=== PATIENT | male | born 1975 | race Caucasian/White ===

== ENCOUNTER 2019-06-16 14:48 | Emergency (ER) | payer MEDICAID, SELFPAY | END 2019-06-16 17:51 | disposition home or self-care (01) | PROVIDERS: Emergency Provider Family Medicine; Family Provider Internal Medicine; Visit Provider Family Medicine | DX: K80.50 Calculus of bile duct without cholangitis or cholecystitis without obstruction (principal); I10 Essential (primary) hypertension; M06.9 Rheumatoid arthritis, unspecified; M81.0 Age-related osteoporosis without current pathological fracture | CPT/HCPCS: 71045; 74177; 76705; 80053; 81003; 83690; 85025; 96374; 99284; J2270; Q9967 ==

== ENCOUNTER → 2019-06-20 08:03 | Outpatient (BNVA) | payer MEDICAID, SELFPAY | PROVIDERS: Family Provider Internal Medicine; PCP Internal Medicine; Visit Provider Anesthesiology | DX: G89.29 Other chronic pain (principal); M54.2 Cervicalgia; M54.41 Lumbago with sciatica, right side; M54.42 Lumbago with sciatica, left side; F17.220 Nicotine dependence, chewing tobacco, uncomplicated; Z79.891 Long term (current) use of opiate analgesic | CPT/HCPCS: 99214 ==

== ENCOUNTER 2019-07-07 07:38 | Outpatient (CLI) | payer MEDICAID, SELFPAY ==
--- NOTE | 2019-07-07 08:00 | NM_ITS ---
WS: [id number] NUCLEAR MEDICINE HIDA SCAN CLINICAL INFORMATION: BILARY COLIC TECHNIQUE: Following intravenous administration of 7.9 mCi of technetium 99m mebrofenin, images of th e abdomen were obtained over the course of 60 minutes. Next, gallbladder ejection fraction was determ ined by obtaining preprandial and one-hour postprandial images of the gallbladder following oral lorraine stion of Ensure. COMPARISON: Ultrasound gallbladder May 20, 2019 FINDINGS: Normal hepatic uptake at 5 minutes. Gallbladder is visualized by 10 minutes. No evidence of acute cho lecystitis. Normal hepatic excretion. Normal visualized small bowel activity. No evidence of choledoc holithiasis. Gallbladder ejection fraction 56% within normal limits. No evidence of chronic cholecystitis. NM/NM hepatobiliary w phar* [id number] IMPRESSION: 1. No evidence of acute or chronic cholecystitis. 2. Normal ejection fraction 56%.
== END 2019-07-07 07:39 | disposition home or self-care (01) ==
PROVIDERS: Family Provider Internal Medicine; Visit Provider Internal Medicine
DX: K83.9 Disease of biliary tract, unspecified (principal)
CPT/HCPCS: 78227; A9537

== ENCOUNTER 2019-07-18 08:56 | Day surgery (SDC) | payer MEDICAID, SELFPAY ==
[2019-07-17 07:13] VITALS: BMI 41.5
--- NOTE | 2019-07-18 09:13 | PM.HPUD ---
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
--- NOTE | 2019-07-18 09:15 | ANES.PREANES ---
Pre-Anesthetic Assessment Pre-Anesthetic Assessment: Height/Weight: Height 1.78 m Weight 131.542 kg Preop Diagnosis: abominal pain Proposed Procedure: Operation Date: 07/18/19 10:30 Proposed Procedures p EGD(Not Applicable) - Terrell Beck MD Familial anesthetic complications: No trouble Was Beta Aida taken within 24 hours: N/A Last intake: Yesterday at 1630 Social: Social History: No alcohol and No tobacco Exam: Pre-Anes Outpt Exam: alert, oriented x 3, clear to auscultation bilaterally and regular rate & rhythm Airway: Cervical ROM: WNL MP: 4 Dentition: Full Pulmonary: Pulmonary: Sleep apnea (cpap) CV/HEM: CV/HEM: HTN and Murmur (had it since he was born) : : None reported Hepatic: Hepatic: None reported GI: GI: GERD Comments: abdominal pain Metabolic: Metabolic: Morbid obesity Musc/skel: Musc/skel: OA/DJD and RA Comments: osteoporosis Neuropsych: Neuropsych: Neuropathy and None reported Comments: 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
[2019-07-18 09:34] VITALS: BP 150/82; PULSE 88; RESP 18; TEMP 36.7; O2SAT 92
[2019-07-18] MEDS: sodium chloride 0.9% 1,000 ML 30 ML (09:39)
--- NOTE | 2019-07-18 09:41 | ANES.PREANES ---
Pre-Anesthetic Assessment Pre-Anesthetic Assessment: Height/Weight: Height 1.78 m Weight 131.542 kg Temp Pulse Resp BP Pulse Ox 98.1 F 88 18 150/82 92 07/18/19 09:34 07/18/19 09:34 07/18/19 09:34 07/18/19 09:34 07/18/19 09:34 Preop Diagnosis: [id number] Proposed Procedure: Operation Date: 07/18/19 10:30 Proposed Procedures p EGD(Not Applicable) - Terrell Beck MD Last intake: Intake Last Liquid Date 07/17/19 Last Liquid Time 16:30 Last Solid Date 07/17/19 Last Solid Time 16:30 Social: Social History: Tobacco (chews) and No alcohol Exam: Pre-Anes Outpt Exam: alert, oriented x 3, clear to auscultation bilaterally and regular rate & rhythm Airway: Submandibular: WNL Cervical ROM: WNL MP: 2 History/ROS: No significant history except as noted Pulmonary: Pulmonary: Sleep apnea CV/HEM: CV/HEM: HTN and Murmur : : None reported Hepatic: Hepatic: None reported GI: GI: GERD (controlled) Metabolic: Metabolic: Morbid obesity Musc/skel: Musc/skel: RA and None reported Neuropsych: Neuropsych: Anxiety and Depression Anesthetic Plan: ASA status: III Anesthesia: Anesthesia Evaluation and MAC PFSH Anesthesia PFSH: Medical History Chews tobacco (Chronic) 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
[2019-07-18 10:30] VITALS: BP 125/82; PULSE 81; RESP 16; TEMP 36.6; O2SAT 98
[2019-07-18 10:58] VITALS: BP 119/71; PULSE 85; RESP 20; O2SAT 96
== END 2019-07-18 11:02 | disposition home or self-care (01) ==
PROVIDERS: Family Provider Internal Medicine; PCP Internal Medicine; Visit Provider Internal Medicine
PROC: 0DJ08ZZ Inspection of Upper Intestinal Tract, Via Natural or Artificial Opening Endoscopic (ICD-10-PCS; CPT 43235; principal; 2019-07-18 10:30)
DX: R14.0 Abdominal distension (gaseous) (principal); G47.33 Obstructive sleep apnea (adult) (pediatric); Z79.891 Long term (current) use of opiate analgesic; G89.29 Other chronic pain; Z79.899 Other long term (current) drug therapy; Z82.49 Family history of ischemic heart disease and other diseases of the circulatory system; K25.7 Chronic gastric ulcer without hemorrhage or perforation; I10 Essential (primary) hypertension; K21.9 Gastro-esophageal reflux disease without esophagitis; E66.01 Morbid (severe) obesity due to excess calories; Z68.41 Body mass index [BMI] 40.0-44.9, adult; F17.220 Nicotine dependence, chewing tobacco, uncomplicated
CPT/HCPCS: 12345; 43235; J2704; J7030

== ENCOUNTER → 2019-08-15 07:49 | Outpatient (BNVA) | payer MEDICAID, SELFPAY | PROVIDERS: Family Provider Internal Medicine; PCP Internal Medicine; Visit Provider Anesthesiology | DX: G89.29 Other chronic pain (principal); M54.41 Lumbago with sciatica, right side; M54.42 Lumbago with sciatica, left side; M25.50 Pain in unspecified joint; Z79.891 Long term (current) use of opiate analgesic | CPT/HCPCS: 99214 ==

== ENCOUNTER → 2019-12-02 09:31 | Outpatient (BNVA) | payer MEDICAID, SELFPAY | PROVIDERS: Family Provider Internal Medicine; PCP Internal Medicine; Visit Provider Anesthesiology | DX: G89.29 Other chronic pain (principal); M54.6 Pain in thoracic spine; M54.41 Lumbago with sciatica, right side; M54.42 Lumbago with sciatica, left side; F17.220 Nicotine dependence, chewing tobacco, uncomplicated; Z79.891 Long term (current) use of opiate analgesic; Z71.6 Tobacco abuse counseling | CPT/HCPCS: 99214 ==

== ENCOUNTER 2020-01-09 13:41 | Outpatient (CLI) | payer MEDICAID, SELFPAY ==
--- NOTE | 2020-01-09 14:00 | CT_ITS ---
WS: [id number] CT CHEST TECHNIQUE: Contrast enhanced CT of the chest with coronal and sagittal reformatted images. CLINICAL INFORMATION: hernia COMPARISON: CT chest DLP: 1208.[address] scans at [facility] use at least one of these dose optimization techniques: automat ed exposure control; mA and/or kV adjustment per patient size (includes targeted exams where dose is matched to clinical indication); or iterative reconstruction. FINDINGS: Mild chronic emphysematous changes. No acute pulmonary infiltrates. No consolidation or pleural fluid . Atelectasis in the lung bases. No mediastinal or hilar lymphadenopathy. Normal thyroid gland. Hepat omegaly. Homogeneous Enhancing lesion left hepatic lobe likely represents cavernous hemangioma or focal nodula r hyperplasia. This measures 3.1 cm unchanged from . Adrenal glands are normal. Normal renal parenchymal enhancement. Normal GE junction. No axillary lymphadenopathy. CT/CT chest w con* [id number] IMPRESSION: 1. Mild chronic emphysematous changes. No acute parenchymal infiltrates. 2. No suspicious pulmonary parenchymal abnormalities. 3. Slight atelectasis in the lung bases. 4. No mediastinal or hilar lymphadenopathy. 5. Hepatomegaly with diffuse fatty infiltrationliver. 6. Stable enhancing lesion left hepatic lobe measuring 3.1 cm unchanged since 2019 likely represents benign cavernous hemangioma or FNH.
[2020-01-09] MEDS: iohexol 300 mg/mL 100 mL Btl IV (14:23)
== END 2020-01-09 13:42 | disposition home or self-care (01) ==
LOC: RADWPI 13:42
PROVIDERS: Family Provider Internal Medicine; PCP Internal Medicine; Visit Provider Thoracic Surgery (Cardiothoracic Vascular Surgery)
DX: K46.9 Unspecified abdominal hernia without obstruction or gangrene (principal); J43.8 Other emphysema; J98.11 Atelectasis; R16.0 Hepatomegaly, not elsewhere classified; K76.0 Fatty (change of) liver, not elsewhere classified
CPT/HCPCS: 71260; Q9967

== ENCOUNTER → 2020-02-04 08:33 | Outpatient (BNVA) | payer MEDICAID, SELFPAY | PROVIDERS: Family Provider Internal Medicine; PCP Internal Medicine; Visit Provider Nurse Practitioner | DX: G89.29 Other chronic pain (principal); M54.41 Lumbago with sciatica, right side; M54.42 Lumbago with sciatica, left side; M54.6 Pain in thoracic spine; F17.220 Nicotine dependence, chewing tobacco, uncomplicated; Z79.891 Long term (current) use of opiate analgesic; Z71.6 Tobacco abuse counseling | CPT/HCPCS: 99214 ==

== ENCOUNTER 2020-02-05 08:29 | Outpatient (CLI) | payer MEDICAID, SELFPAY ==
--- NOTE | 2020-02-05 08:45 | US_ITS ---
WS: [id number] Limited abdominal ultrasound. HISTORY: Evaluate for intact mesh over the subxiphoid hernia. COMPARISON: CT 01/09/2020. Ultrasound evaluation of the subxiphoid region reveals herniated omental fat through a defect in the midline abdominal wall. Omental fat herniating through a defect. No definite overlying mesh is identi fied. Mesh would be difficult to visualize by ultrasound. The omental fat herniation measures 2.0 x 1 .2 cm. I did review a prior CT from 01/09/2020 which also revealed a subxiphoid hernia. The mesh appea red incomplete on the CT evaluation. US/US abdomen limited [id number] Impression: 1. The mesh associated with subxiphoid hernia repair is not identified. 2. Herniated omental fat through the subxiphoid region extends beyond the abdom inal wall.
== END 2020-02-05 08:30 | disposition home or self-care (01) ==
LOC: US 08:30
PROVIDERS: PCP Internal Medicine; Visit Provider Thoracic Surgery (Cardiothoracic Vascular Surgery)
DX: K43.9 Ventral hernia without obstruction or gangrene (principal)
CPT/HCPCS: 76705

== ENCOUNTER → 2020-02-25 09:08 | Outpatient (BNVA) | payer MEDICAID, SELFPAY | PROVIDERS: PCP Internal Medicine; Visit Provider Internal Medicine | DX: M13.80 Other specified arthritis, unspecified site (principal); F17.220 Nicotine dependence, chewing tobacco, uncomplicated | CPT/HCPCS: 99214 ==

== ENCOUNTER 2020-02-25 10:25 | Outpatient (CLI) | payer MEDICAID, SELFPAY ==
--- NOTE | 2020-02-25 10:31 | XRR_ITS ---
PROCEDURE INFORMATION: Exam: XR Right Hand Exam date and time: 02/25/2020 11:27 AM Age: 44 years old Clinical indication: Pain; Hand; Right; Additional info: Hand/joint pain TECHNIQUE: Imaging protocol: XR Right hand. Views: Frontal and lateral views. COMPARISON: No relevant prior studies available. FINDINGS: Bones/joints: Normal. Soft tissues: Mild dorsal metacarpal soft tissue swelling. XR/XR hand RT 2V [id number] IMPRESSION: No acute bony findings.
--- NOTE | 2020-02-25 10:31 | XRR_ITS ---
PROCEDURE INFORMATION: Exam: XR Left Hand Exam date and time: 02/25/2020 11:27 AM Age: 44 years old Clinical indication: Pain; Hand; Left; Prior surgery; Surgery type: Skin graft palm; Additional info: Inflammatory arthritis, pain TECHNIQUE: Imaging protocol: XR Left hand. Views: 3 or more views. COMPARISON: No relevant prior studies available. FINDINGS: Bones/joints: Osseous structures of the hand are without an acute process. Distal radioulnar joint and radiocarpal joints grossly normal. Carpus without fracture. Metacarpals and phalangeal without fracture or dislocation. No erosive changes or periarticular calcifications. Soft tissues: See Bones/joints finding. XR/XR hand LT 2V [id number] IMPRESSION: Normal hand. No fracture. No foreign body.
--- NOTE | 2020-02-25 10:31 | XRR_ITS ---
PROCEDURE INFORMATION: Exam: XR Left Foot Exam date and time: 02/25/2020 11:27 AM Age: 44 years old Clinical indication: Pain; Foot; Left; Additional info: Foot pain TECHNIQUE: Imaging protocol: XR Left foot. Views: Frontal and lateral views. COMPARISON: No relevant prior studies available. FINDINGS: Bones/joints: No acute bony abnormality identified. A small plantar calcaneal ossified spur is present. Fifth DIP joint fusion, normal variant. Soft tissues: Normal. XR/XR foot LT 2V [id number] IMPRESSION: 1. No acute bony abnormality identified. 2. Plantar calcaneal spur.
--- NOTE | 2020-02-25 10:31 | XRR_ITS ---
PROCEDURE INFORMATION: Exam: XR Right Foot Exam date and time: 02/25/2020 11:27 AM Age: 44 years old Clinical indication: Pain; Foot; Right; Additional info: Foot pain TECHNIQUE: Imaging protocol: XR Right foot. Views: Frontal and lateral all views. COMPARISON: MRI Foot w/o RIGHT* [id number] 03/18/2018 4:18 PM FINDINGS: Bones/joints: No acute bony abnormality identified. Fifth DIP joint fusion, normal variant. A small plantar calcaneal ossified spur is present. Soft tissues: Normal. XR/XR foot RT 2V [id number] IMPRESSION: 1. No acute bony abnormality identified. 2. Plantar calcaneal spur.
--- NOTE | 2020-02-25 10:31 | XRR_ITS ---
PROCEDURE INFORMATION: Exam: XR Bilateral Hips with Pelvis when Performed Exam date and time: 02/25/2020 11:27 AM Age: 44 years old Clinical indication: Hip pain; Bilateral; Additional info: Hip pain ? si arthritis TECHNIQUE: Imaging protocol: XR bilateral hips with pelvis when performed. Views: 3 or 4 views. COMPARISON: CT Abdomen/Pelvis w IV* [id number] 06/16/2019 5:05 PM FINDINGS: Bones/joints: Mild degenerative changes within the right and left hip including mild joint space narrowing and early osteophyte formation. No fracture. The trabecular stress markings normal. osseous structures of the pelvis are without an acute process. rami are intact. Sacroiliac joints without separation/diastases/fracture. Iliac bones are normal. Soft tissues: Unremarkable. XR/XR hip BI 3-4V wo/w pel [id number] IMPRESSION: Mild degenerative changes within the right and left hip.
[2020-02-25 12:20] LABS: Basophils # 0.1 10^3/uL (0.0-0.1); Basophils % 0.9 %; Eosinophils # 0.1 10^3/uL (0.0-0.8); Eosinophils % 1.8 %; Hemoglobin 15.7 g/dL (11.7-16.6); Lymphocytes % 25.3 %; Mean Corpuscular HGB Conc 31.4 g/dL (30.0-36.0); Mean Corpuscular Hemoglobin 28.1 pg (28.0-34.0); Mean Corpuscular Volume 89.6 fL (80-94); Mean Platelet Volume 10.6 fL (7.4-10.4); Monocytes # 0.5 10^3/uL (0.2-0.9); Monocytes % 6.8 %; Neutrophils # 5.05 10^3/uL (1.8-7.7); Neutrophils % 64.8 %; Nucleated Red Blood Cells % 0 %; Platelet Count 275 10^3/cmm (130-400); Red Blood Count 5.58 10^6/uL (4.1-5.3); Red Cell Distribution Width 12.5 % (12.1-15.1); White Blood Count 7.8 10^3/uL (4.0-10.0)
[2020-02-25 12:58] LABS: Alanine Aminotransferase 61 U/L (0-41); Albumin Level 4.5 g/dL (3.5-5.2); Alkaline Phosphatase 73 IU/L (40-130); Aspartate Amino Transferase 37 U/L (0-40); Blood Urea Nitrogen 9 mg/dL (6-20); Calcium 9.2 mg/dL (8.5-10.5); Carbon Dioxide 28 mmol/L (22-29); Chloride 102 mmol/L (98-107); Erythrocyte Sedimentation Rate 5 mm/hr (0-10); Globulin 2.8 g/dL (1.3-4.6); Glomerular Filtration Rate 92.1 mL/min (90-130); Glucose 108 mg/dL (65-115); Osmolality Calculated 287 mOsm/kg (285-295); Sodium 140 mmol/L (136-145); Testosterone Total 491.9 ng/dL (249-836); Thyroid Stimulating Hormone 2.02 uIU/mL (0.27-4.20); Total Bilirubin 0.3 mg/dL (0.15-1.2); Total Protein 7.3 g/dL (6.6-8.7); Uric Acid 5.8 mg/dL (3.4-7.0)
[2020-02-25 13:16] LABS: Ferritin 87 ng/mL (30-400)
[2020-02-25 13:20] LABS: Iron 54 ug/dL (59-158)
[2020-02-27 12:37] LABS: COMPLEMENT, TOTAL (CH50) 58 U/mL (31-60)
[2020-02-27 13:41] LABS: COMPLEMENT COMPONENT C3C 154 mg/dL (82-185); COMPLEMENT COMPONENT C4C 16 mg/dL (15-53); Cyclic Citrullinated Peptide <16 UNITS
[2020-02-27 17:52] LABS: HLA-B27 POSITIVE (NEGATIVE)
[2020-02-29 02:08] LABS: Immunoglobulin A 114 mg/dL (47-310)
[2020-03-01 00:17] LABS: Tissue Transglutaminase IgA Ab <1 U/mL; Tissue transglutaminase Ab.IgG 5 U/mL
[2020-03-01 00:47] LABS: DNA AB (DS) CRITHIDIA,IFA NEGATIVE (NEGATIVE)
[2020-03-01 14:17] LABS: ANA SCREEN, IFA NEGATIVE (NEGATIVE); CENTROMERE B ANTIBODY <1.0 NEG AI (<1.0 NEG); JO-1 ANTIBODY <1.0 NEG AI (<1.0 NEG); RNP ANTIBODY <1.0 NEG AI (<1.0 NEG); SCL-70 ANTIBODY <1.0 NEG AI (<1.0 NEG); SJOGREN'S ANTIBODY (SS-A) <1.0 NEG AI (<1.0 NEG); SM ANTIBODY <1.0 NEG AI (<1.0 NEG); THYROID PEROXIDASE ANTIBODIES 4 IU/mL (<9)
[2020-03-01 16:13] LABS: Gliadin Ab.IgA 4 U (<20); Gliadin Ab.IgG 6 U (<20)
[2020-03-02 18:42] LABS: PTH Related Peptide (Protein) 8 pg/mL (14-27)
== END 2020-02-25 10:26 | disposition home or self-care (01) ==
LOC: RAD 10:29
PROVIDERS: PCP Internal Medicine; Visit Provider Internal Medicine
DX: M79.672 Pain in left foot (principal); M79.671 Pain in right foot; M13.80 Other specified arthritis, unspecified site; M79.642 Pain in left hand; M79.641 Pain in right hand; M25.552 Pain in left hip; M25.551 Pain in right hip; M77.32 Calcaneal spur, left foot; M77.31 Calcaneal spur, right foot
CPT/HCPCS: 73120; 73521; 73522; 73620; 80053; 82542; 82728; 82784; 83516; 83540; 84403; 84443; 84550; 85025; 85651; 86140; 86431; 86812

== ENCOUNTER → 2020-04-01 08:48 | Outpatient (BNVA) | payer MEDICAID, SELFPAY | PROVIDERS: Family Provider Internal Medicine; PCP Internal Medicine; Visit Provider Anesthesiology | DX: G89.29 Other chronic pain (principal); M54.41 Lumbago with sciatica, right side; M54.42 Lumbago with sciatica, left side; M54.6 Pain in thoracic spine; F17.220 Nicotine dependence, chewing tobacco, uncomplicated; Z79.891 Long term (current) use of opiate analgesic | CPT/HCPCS: 99214 ==

== ENCOUNTER 2020-04-01 09:50 | Outpatient (CLI) | payer MEDICAID, SELFPAY ==
[2020-04-01 11:20] LABS: 25 Hydroxy Vitamin D 30 ng/mL (30-100); Anion Gap 13.5 (5-19); Blood Urea Nitrogen 9 mg/dL (6-20); Calcium 9.2 mg/dL (8.5-10.5); Carbon Dioxide 28 mmol/L (22-29); Chloride 99 mmol/L (98-107); Glomerular Filtration Rate 105.5 mL/min (90-130); Glucose 107 mg/dL (65-115); Osmolality Calculated 283 mOsm/kg (285-295); Potassium 3.5 mmol/L (3.5-5.1); Sodium 137 mmol/L (136-145)
[2020-04-01 11:23] LABS: Parathyroid Hormone 70.1 pg/mL (15-65)
== END 2020-04-01 09:51 | disposition home or self-care (01) ==
LOC: LAB 09:54
PROVIDERS: PCP Internal Medicine; Visit Provider Internal Medicine
DX: D86.9 Sarcoidosis, unspecified (principal); K43.2 Incisional hernia without obstruction or gangrene; G89.29 Other chronic pain
CPT/HCPCS: 36415; 80048; 82306; 82310; 83970; 84100

== ENCOUNTER 2020-05-07 11:50 | Outpatient (CLI) | payer MEDICAID, SELFPAY ==
[2020-05-07 12:10] LABS: Basophils # 0.1 10^3/uL (0.0-0.1); Basophils % 0.9 %; Eosinophils # 0.1 10^3/uL (0.0-0.8); Eosinophils % 1.1 %; Hematocrit 51.8 % (42.0-52.0); Hemoglobin 16.5 g/dL (11.7-16.6); Lymphocytes # 2.2 10^3/uL (0.8-4.8); Lymphocytes % 29.2 %; Mean Corpuscular HGB Conc 31.9 g/dL (30.0-36.0); Mean Corpuscular Hemoglobin 28.1 pg (28.0-34.0); Mean Corpuscular Volume 88.1 fL (80-94); Mean Platelet Volume 9.9 fL (7.4-10.4); Monocytes # 0.6 10^3/uL (0.2-0.9); Monocytes % 7.5 %; Neutrophils # 4.65 10^3/uL (1.8-7.7); Neutrophils % 61.2 %; Nucleated Red Blood Cells % 0 %; Platelet Count 339 10^3/cmm (130-400); Red Blood Count 5.88 10^6/uL (4.1-5.3); Red Cell Distribution Width 12.2 % (12.1-15.1); White Blood Count 7.6 10^3/uL (4.0-10.0)
[2020-05-07 12:29] LABS: Alanine Aminotransferase 42 U/L (0-41); Albumin Level 4.7 g/dL (3.5-5.2); Alkaline Phosphatase 90 IU/L (40-130); Anion Gap 11.3 (5-19); Aspartate Amino Transferase 25 U/L (0-40); Blood Urea Nitrogen 11 mg/dL (6-20); Calcium 9.3 mg/dL (8.5-10.5); Carbon Dioxide 30 mmol/L (22-29); Chloride 99 mmol/L (98-107); Globulin 2.6 g/dL (1.3-4.6); Glomerular Filtration Rate 92.1 mL/min (90-130); Glucose 117 mg/dL (65-115); Osmolality Calculated 284 mOsm/kg (285-295); Potassium 3.3 mmol/L (3.5-5.1); Sodium 137 mmol/L (136-145); Total Bilirubin 0.4 mg/dL (0.15-1.2); Total Protein 7.3 g/dL (6.6-8.7)
[2020-05-07 12:49] LABS: Calcium 9.5 mg/dL (8.5-10.5); Parathyroid Hormone 85.4 pg/mL (15-65)
[2020-05-07 13:21] LABS: Hepatitis B Core AB, Total Non-Reactive (Nonreactive); Hepatitis B Surface Antigen Non-Reactive (Nonreactive); Hepatitis C Virus Antibody Non-Reactive (Nonreactive)
[2020-05-10 13:18] LABS: Quantiferon Mitogen 9.96 IU/mL; Quantiferon Nil 0.02 IU/mL; Quantiferon TB Gold NEGATIVE (NEGATIVE)
== END 2020-05-07 11:51 | disposition home or self-care (01) ==
LOC: LAB 11:52
PROVIDERS: PCP Internal Medicine; Visit Provider Internal Medicine
DX: Z15.89 Genetic susceptibility to other disease (principal); D86.9 Sarcoidosis, unspecified; M32.9 Systemic lupus erythematosus, unspecified; Z51.81 Encounter for therapeutic drug level monitoring
CPT/HCPCS: 36415; 80053; 82310; 83970; 84100; 85025; 86480; 86704; 86803; 87340

== ENCOUNTER → 2020-05-25 16:03 | Outpatient (BNVA) | payer MEDICAID, SELFPAY | PROVIDERS: Family Provider Internal Medicine; PCP Internal Medicine; Visit Provider Internal Medicine | DX: E61.1 Iron deficiency (principal); N52.9 Male erectile dysfunction, unspecified; M13.80 Other specified arthritis, unspecified site | CPT/HCPCS: 83550; 85025 ==

== ENCOUNTER → 2020-06-01 08:18 | Outpatient (BNVA) | payer MEDICAID, SELFPAY | PROVIDERS: Family Provider Internal Medicine; PCP Internal Medicine; Visit Provider Anesthesiology | DX: G89.29 Other chronic pain (principal); M54.41 Lumbago with sciatica, right side; M54.42 Lumbago with sciatica, left side; M54.6 Pain in thoracic spine; F17.220 Nicotine dependence, chewing tobacco, uncomplicated; Z79.899 Other long term (current) drug therapy; Z79.891 Long term (current) use of opiate analgesic | CPT/HCPCS: 99213; 99214 ==

== ENCOUNTER → 2020-06-24 15:42 | Outpatient (BNVA) | payer MEDICAID, SELFPAY | PROVIDERS: Family Provider Internal Medicine; PCP Internal Medicine; Visit Provider Internal Medicine | DX: M13.80 Other specified arthritis, unspecified site (principal); E61.1 Iron deficiency | CPT/HCPCS: 80053; 83550; 85025 ==

== ENCOUNTER → 2020-07-30 09:34 | Outpatient (BNVA) | payer MEDICAID, SELFPAY | PROVIDERS: Family Provider Internal Medicine; PCP Internal Medicine; Visit Provider Anesthesiology | DX: G89.29 Other chronic pain (principal); M54.41 Lumbago with sciatica, right side; M54.42 Lumbago with sciatica, left side; M54.6 Pain in thoracic spine; F17.220 Nicotine dependence, chewing tobacco, uncomplicated; Z79.899 Other long term (current) drug therapy; Z79.891 Long term (current) use of opiate analgesic | CPT/HCPCS: 99213 ==

== ENCOUNTER → 2020-08-18 09:55 | Outpatient (BNVA) | payer MEDICAID, SELFPAY | PROVIDERS: Family Provider Internal Medicine; PCP Internal Medicine; Visit Provider Internal Medicine | DX: M13.80 Other specified arthritis, unspecified site (principal); M54.9 Dorsalgia, unspecified; M54.5 Low back pain; F17.220 Nicotine dependence, chewing tobacco, uncomplicated | CPT/HCPCS: 80053; 82310; 82728; 83540; 83970; 85025; 85651; 86140; 99213 ==

== ENCOUNTER → 2020-10-05 08:18 | Outpatient (BNVA) | payer MEDICAID, SELFPAY | PROVIDERS: Family Provider Internal Medicine; PCP Internal Medicine; Visit Provider Anesthesiology | DX: G89.29 Other chronic pain (principal); M54.41 Lumbago with sciatica, right side; M54.42 Lumbago with sciatica, left side; M54.6 Pain in thoracic spine; F17.220 Nicotine dependence, chewing tobacco, uncomplicated; Z79.899 Other long term (current) drug therapy; Z79.891 Long term (current) use of opiate analgesic | CPT/HCPCS: 99213 ==

== ENCOUNTER → 2020-11-17 09:31 | Outpatient (BNVA) | payer MEDICAID, SELFPAY | PROVIDERS: Family Provider Internal Medicine; PCP Internal Medicine; Visit Provider Internal Medicine | DX: M13.80 Other specified arthritis, unspecified site (principal); G89.29 Other chronic pain; Z79.899 Other long term (current) drug therapy; M54.41 Lumbago with sciatica, right side; M54.42 Lumbago with sciatica, left side; R53.83 Other fatigue; F17.210 Nicotine dependence, cigarettes, uncomplicated | CPT/HCPCS: 36415; 80053; 85025; 85651; 86140; 99214 ==

== ENCOUNTER → 2020-12-07 08:37 | Outpatient (BNVA) | payer MEDICAID, SELFPAY | PROVIDERS: Family Provider Internal Medicine; PCP Internal Medicine; Visit Provider Anesthesiology | DX: G89.29 Other chronic pain (principal); M54.41 Lumbago with sciatica, right side; M54.42 Lumbago with sciatica, left side; M54.6 Pain in thoracic spine; Z72.0 Tobacco use; Z79.899 Other long term (current) drug therapy; Z79.891 Long term (current) use of opiate analgesic | CPT/HCPCS: 99213 ==

== ENCOUNTER 2020-12-23 06:45 | Outpatient (CLI) | payer MEDICAID, SELFPAY ==
--- NOTE | 2020-12-23 07:15 | MR_ITS ---
WS: [id number] MRI LUMBAR SPINE NONCONTRAST HISTORY: M54.41 - Lumbago with sciatica, right side COMPARISON: 06/28/2018 TECHNIQUE: Sagittal and axial multisequence imaging is submitted. Normal lumbar alignment with no compression fractures or marrow edema. Very slight disc desiccation at L5-S1. Conus terminates normally at L1-2 disc level. L1-L2: Normal. L2-L3: Normal. L3-L4: Small RIGHT foraminal disc protrusion is again identified contacting the L3 nerve root. To the prior examination. Very mild bilateral foraminal narrowing, RIGHT greater than LEFT. L4-L5: Again noted is a very small LEFT foraminal disc protrusion contacting the L4 nerve root. Mild bilateral foraminal narrowing, LEFT greater than RIGHT. L5-S1: Mild diffuse disc bulging with a shallow LEFT paracentral disc protrusion encroaching upon the LEFT S1 nerve root. Associated with the disc protrusion. Mild bilateral foraminal narrowing. MR/MR lumbar spine wo con* [id number] IMPRESSION: 1. LEFT paracentral disc protrusion at L5-S1 contacting the LEFT S1 nerve root . Similar to the prior study with no significant progression or improvement. 2. Small RIGHT foraminal disc protrusion at L3-4 and on the LEFT at L4-5 with mild contact upon the L3 and L4 nerve roots respectively. Similar to the prior study with no progression. 3. No high-grade central or foraminal stenosis.
== END 2020-12-23 06:46 | disposition home or self-care (01) ==
LOC: RADSHAW 06:48
PROVIDERS: PCP Internal Medicine; Visit Provider Anesthesiology
DX: M54.41 Lumbago with sciatica, right side (principal); M54.42 Lumbago with sciatica, left side; G89.29 Other chronic pain; M51.27 Other intervertebral disc displacement, lumbosacral region; M51.26 Other intervertebral disc displacement, lumbar region
CPT/HCPCS: 72148

== ENCOUNTER → 2021-02-01 08:22 | Outpatient (BNVA) | payer MEDICAID, SELFPAY | PROVIDERS: PCP Internal Medicine; Visit Provider Anesthesiology | DX: G89.29 Other chronic pain (principal); M54.41 Lumbago with sciatica, right side; M54.42 Lumbago with sciatica, left side; M54.6 Pain in thoracic spine; Z79.891 Long term (current) use of opiate analgesic | CPT/HCPCS: 99213 ==

== ENCOUNTER → 2021-02-11 09:21 | Outpatient (BNVA) | payer MEDICAID, SELFPAY | PROVIDERS: PCP Internal Medicine; Visit Provider Internal Medicine | DX: Z15.89 Genetic susceptibility to other disease (principal); Z79.899 Other long term (current) drug therapy | CPT/HCPCS: 80053; 85025; 85651; 86140 ==

== ENCOUNTER → 2021-02-22 09:34 | Outpatient (BNVA) | payer MEDICAID, SELFPAY | PROVIDERS: PCP Internal Medicine; Visit Provider Internal Medicine | DX: M13.80 Other specified arthritis, unspecified site (principal); G89.29 Other chronic pain; Z15.89 Genetic susceptibility to other disease; M48.00 Spinal stenosis, site unspecified; Z79.899 Other long term (current) drug therapy; F17.220 Nicotine dependence, chewing tobacco, uncomplicated | CPT/HCPCS: 99214 ==

== ENCOUNTER → 2021-03-03 15:20 | Outpatient (BNVA) | payer MEDICAID, SELFPAY | PROVIDERS: PCP Internal Medicine; Visit Provider Internal Medicine | DX: G25.81 Restless legs syndrome (principal) | CPT/HCPCS: 83550; 84443 ==

== ENCOUNTER → 2021-03-24 09:12 | Outpatient (BNVA) | payer MEDICAID, SELFPAY | PROVIDERS: PCP Internal Medicine; Visit Provider Nurse Practitioner | DX: G89.29 Other chronic pain (principal); M54.41 Lumbago with sciatica, right side; M54.42 Lumbago with sciatica, left side; M54.6 Pain in thoracic spine; M13.80 Other specified arthritis, unspecified site; M25.50 Pain in unspecified joint; R20.0 Anesthesia of skin; R20.2 Paresthesia of skin; F17.220 Nicotine dependence, chewing tobacco, uncomplicated; Z79.891 Long term (current) use of opiate analgesic; Z71.6 Tobacco abuse counseling | CPT/HCPCS: 99214 ==

== ENCOUNTER 2021-03-24 10:14 | Outpatient (CLI) | payer MEDICAID, SELFPAY ==
--- NOTE | 2021-03-24 10:34 | XR_ITS ---
WS: [id number] LATERAL LUMBAR SPINE: 3 view. Lateral radiographs are performed in upright neutral, flexion and extension to the patient's toleranc e. HISTORY: M54.41 - Lumbago with sciatica, right side COMPARISON: None available. Normal posterior lumbar alignment. With flexion and extension there is no instability. Disc spaces an d vertebral body heights are normal. Facet joint arthritis is mild at L4-5 and moderate at L5-S1. XR/XR lumbar spine f/e only [id number] IMPRESSION: 1. No lumbar spine instability. 2. Facet joint arthritis is most significant at L5-S1.
== END 2021-03-24 10:15 | disposition home or self-care (01) ==
PROVIDERS: PCP Internal Medicine; Visit Provider Nurse Practitioner
DX: M54.41 Lumbago with sciatica, right side (principal); M54.42 Lumbago with sciatica, left side; G89.29 Other chronic pain; M47.817 Spondylosis without myelopathy or radiculopathy, lumbosacral region
CPT/HCPCS: 72120

== ENCOUNTER → 2021-04-14 07:43 | Outpatient (BNVA) | payer MEDICAID, SELFPAY | PROVIDERS: PCP Internal Medicine; Visit Provider Anesthesiology | DX: G89.29 Other chronic pain (principal); M51.16 Intervertebral disc disorders with radiculopathy, lumbar region | CPT/HCPCS: 62323; J3490 ==

== ENCOUNTER → 2021-05-19 08:29 | Outpatient (BNVA) | payer MEDICAID, SELFPAY | PROVIDERS: PCP Internal Medicine; Visit Provider Anesthesiology | DX: G89.29 Other chronic pain (principal); M54.6 Pain in thoracic spine; M54.41 Lumbago with sciatica, right side; M54.42 Lumbago with sciatica, left side; F17.220 Nicotine dependence, chewing tobacco, uncomplicated; Z79.899 Other long term (current) drug therapy; Z79.891 Long term (current) use of opiate analgesic; Z71.6 Tobacco abuse counseling | CPT/HCPCS: 99214 ==

== ENCOUNTER → 2021-06-27 08:22 | Outpatient (BNVA) | payer MEDICAID, SELFPAY | PROVIDERS: PCP Internal Medicine; Visit Provider Internal Medicine | DX: M06.00 Rheumatoid arthritis without rheumatoid factor, unspecified site (principal); Z15.89 Genetic susceptibility to other disease; Z79.899 Other long term (current) drug therapy; M19.90 Unspecified osteoarthritis, unspecified site; M48.8X9 Other specified spondylopathies, site unspecified | CPT/HCPCS: 80053; 84100; 85651; 86140; 99214 ==

== ENCOUNTER → 2021-07-28 10:00 | Outpatient (BNVA) | payer MEDICAID, SELFPAY | PROVIDERS: PCP Internal Medicine; Visit Provider Anesthesiology | DX: G89.29 Other chronic pain (principal); M54.6 Pain in thoracic spine; M54.41 Lumbago with sciatica, right side; M54.42 Lumbago with sciatica, left side; F17.220 Nicotine dependence, chewing tobacco, uncomplicated; Z79.891 Long term (current) use of opiate analgesic | CPT/HCPCS: 99213 ==

== ENCOUNTER → 2021-08-08 08:36 | Outpatient (BNVA) | payer MEDICAID, SELFPAY | PROVIDERS: PCP Internal Medicine; Visit Provider Surgery | DX: Z11.52 Encounter for screening for COVID-19 (principal) | CPT/HCPCS: 87635 ==

== ENCOUNTER 2021-08-15 06:20 | Day surgery (SDC) | payer MEDICAID, SELFPAY ==
[2021-08-12 10:56] VITALS: BMI 42.7
[2021-08-15] VITALS (11 sets, daily range): BP systolic 152–182; BP diastolic 83–112; PULSE 67–95; RESP 18–28; TEMP 36.1–36.9; O2SAT 92–98
--- NOTE | 2021-08-15 07:01 | P.ANESASSM_ITS ---
Pre-Anesthetic Assessment Height/Weight: Height 1.78 m Weight 135.171 kg Temp Pulse Resp BP Pulse Ox 98 F 72 20 H 152/104 96 08/15/21 06:48 08/15/21 06:48 08/15/21 06:48 08/15/21 06:48 08/15/21 06:48 Preop Diagnosis: recurrent incisional hernia Operation Date: 08/15/21 07:45 Proposed Procedures p Laparoscopic Incisional Hernia Repair 14695/k43.2(Not Applicable) - Miki Macias MD Familial anesthetic complications: none Last intake: Intake Last Liquid Date 08/14/21 Last Liquid Time 18:00 Last Solid Date 08/14/21 Last Solid Time 18:00 Social Tobacco (chew) and No alcohol chews 1.25 cans per day Exam patient is HLA B27 + patient states he has multiple autoimmune diseases states he believes he has crohns disease but has not has a medical diagnosis at this time. His xiphoid bone broke due to RA Dr. Prescott removed the piece of bone. Airway Submandibular: within normal limits Cervical ROM: Other (RA reports neck pain and neuropathy) Mallampati: Class III Dentition: full Pulmonary Sleep Apnea CV/HEM Hypertension (poorly controlled 140/90 is normal ) and Murmur None reported Hepatic None reported GI Gastroesophageal Reflux Disease Metabolic Hyperlipidemia, Morbid Obesity and Thyroid Disease (parathyroid issues per patient) Musc/skel Lower Back Pain, Osteoarthritis/DJD, Rheumatoid Arthritis and Weakness (cane) Neuropsych Anxiety, Depression and Neuropathy (upper and lower extremities ) Anesthetic Plan ASA status: 3 Anesthesia: General Medications/Allergies Home Medications Medication Instructions Recorded Confirmed Last Taken Type cetirizine 10 mg tablet (Zyrtec) 10 mg PO DAILY 06/12/19 08/15/21 08/08/21 History tadalafil 20 mg tablet 20 mg PO DAILY PRN #30 tab 09/13/20 08/15/21 Unknown Rx multivitamin 1 tab PO DAILY 03/24/21 08/15/21 Unknown History cane #1 ea 03/30/21 08/08/21 Unknown Rx aripiprazole 5 mg tablet (Abilify) 5 mg PO DAILY #30 tab 04/28/21 08/15/21 08/08/21 Rx lisinopril 20 See Rx Instructions .ROUTE 04/28/21 08/15/21 08/12/21 Rx mg-hydrochlorothiazide 25 mg tablet .COMPLEX #30 tab nifedipine 60 mg tablet,extended See Rx Instructions .ROUTE 04/28/21 08/15/21 08/08/21 Rx release .COMPLEX #30 tab celecoxib 200 mg capsule (Celebrex) 200 mg PO BID #60 cap 05/04/21 08/15/21 08/08/21 Rx folic acid 1 mg tablet 2 mg PO DAILY #180 tab 05/04/21 08/15/21 08/08/21 Rx hydroxychloroquine 200 mg tablet See Rx Instructions .ROUTE 05/04/21 08/15/21 08/08/21 Rx .COMPLEX #60 tab sulfasalazine 500 mg tablet 0.5 g PO DAILY #30 tab 05/04/21 08/15/21 08/08/21 Rx duloxetine 30 mg capsule,delayed 30 mg PO DAILY #30 cap 06/22/21 08/15/21 08/08/21 Rx release duloxetine 60 mg capsule,delayed 60 mg PO DAILY #30 cap 06/22/21 08/15/21 08/08/21 Rx release pantoprazole 40 mg tablet,delayed 40 mg PO BID #60 tab 06/27/21 08/15/21 08/08/21 Rx release methotrexate sodium 2.5 mg tablet 15 mg PO .qweek #30 tab 07/06/21 08/15/21 08/08/21 Rx gabapentin 400 mg capsule 400 mg PO BID 30 Days #60 cap 07/28/21 08/15/21 08/08/21 Rx hydrocodone 10 mg-acetaminophen 1 tab PO TID PRN 30 Days #90 tab 07/28/21 08/15/21 08/08/21 Rx 325 mg tablet methocarbamol 750 mg tablet 750 mg PO TID PRN 30 Days #90 tab 07/28/21 08/15/21 08/08/21 Rx Allergies Allergy/AdvReac Type Severity Reaction Status Date / Time No Known Allergies Allergy Verified 08/08/21 07:56 [facility] Anesthesia Medical History (Updated 08/08/21 @ 08:22 by Miki Macias MD) Chronic midline low back pain with bilateral sciatica Chronic thoracic spine pain Depression HLA B27 (HLA B27 positive) Numbness and tingling of hand Surgical History (Updated 08/08/21 @ 08:22 by Miki Macias MD) History of colonoscopy 2020 History of esophagogastroduodenoscopy (EGD) 2019 S/P appendectomy S/P tonsillectomy Status post epigastric hernia repair, follow-up exam Status post skin graft Family History Father Cancer CAD (coronary artery disease) Grandmother CAD (coronary artery disease) MATERNAL Other Arthritis Hypertension Social History Smoking and tobacco status: current every day smoker (smokeless tobacco) smokeless tobacco Smokeless tobacco user: chewing tobacco Smokeless tobacco details: 1 can per day Second hand smoke exposure: No Alcohol intake: never History of recent travel: No Data Anesthesia Cardiac Studies: No Data to Display
--- NOTE | 2021-08-15 07:01 | W.PM.OPSFHP ---
Same Day Surgery H&P Indication for Procedure/HPI DATE OF PROCEDURE: August 15, 2021 CHIEF COMPLAINT/INDICATIONFOR SURGICAL PROCEDURE: Recurrent incisional hernia PREOP DIAGNOSIS: recurrent incisional hernia PLANNED PROCEDURE: Operation Date: 08/15/21 07:45 Proposed Procedures p Laparoscopic Incisional Hernia Repair [id number]/k43.2(Not Applicable) - Miki Macias MD Medications/Allergies* Home Medications Medication Instructions Recorded Confirmed Type cetirizine 10 mg tablet (Zyrtec) 10 mg PO DAILY 06/12/19 08/15/21 History multivitamin 1 tab PO DAILY 03/24/21 08/15/21 History Allergies/Adverse Reactions Allergy/AdvReac Type Severity Reaction Status Date / Time No Known Allergies Allergy Verified 08/08/21 07:56 Pertinent History/Comorbid Conditions* Medical History (Updated 08/08/21 @ 08:22 by Miki Macias MD) Chronic midline low back pain with bilateral sciatica Chronic thoracic spine pain Depression HLA B27 (HLA B27 positive) Numbness and tingling of hand Surgical History (Updated 08/08/21 @ 08:22 by Miki Macias MD) History of colonoscopy 2019 History of esophagogastroduodenoscopy (EGD) 2020 S/P appendectomy S/P tonsillectomy Status post epigastric hernia repair, follow-up exam Status post skin graft Family History (Updated 06/20/19 @ 08:25 by Margot Escobar LPN) CAD (coronary artery disease) Father Grandmother MATERNAL Arthritis Cancer Father Hypertension Social History Smoking and tobacco status: current every day smoker (smokeless tobacco) smokeless tobacco Smokeless tobacco user: chewing tobacco Smokeless tobacco details: 1 can per day Second hand smoke exposure: No Alcohol intake: never History of recent travel: No Pertinent Exam Findings alert, oriented x 3 and regular rate & rhythm Recommendations Surgery/Procedure today Coding Level of Care Code Acute Mortgage Loan Officer Originator for Yesenia Montoya
[2021-08-15] MEDS: sodium chloride 0.9% 1,000 ML 30 ML IV (07:15)
[2021-08-15] MEDS: meperidine 50 mg/mL INJ 12.5 MG IVP (09:26)
--- NOTE | 2021-08-15 09:45 | P.OP_ITS ---
Operative Report Date of procedure: August 15, 2021 Pre-op diagnosis: Recurrent incisional hernia status post open repair with ultraPro mesh Post-op diagnosis: Recurrent incisional hernia measuring 9 x 7 cm status post open repair with incarcerated preperitoneal fat Procedure done: Laparoscopic repair of recurrent incarcerated incisional hernia with Ventralight ST 20 x 15cm mesh Pathology: none sent Surgeon: Miki Macias Anesthesia: General Estimated blood loss (mL): 10 Condition: stable Disposition: PACU Procedure: The patient was taken to the Operating Room and was intubated under general anesthesia after the antibiotic had been administered. The abdomen was prepped and draped in a sterile manner. Using a 15 blade, a 2-cm incision was made in the left upper quadrant in the anterior axillary line and pneumoperitoneum was created using Verres needle. A 10 mm Breana port was placed and 15 mm of pneumoperitoneum was created after a 10 mm 30? scope had been introduced. 5 mm port was placed at the level of the umbilicus on the left side and superior to the umbilicus under direct visualization. Using LigaSure falciform ligament was divided and the peritoneum was opened at the site of the hernia repair revealing an incarcerated recurrent hernia containing preperitoneal fat. The contents of the hernia sac was reduced and the previously placed mesh could be visualized and appear to be well incorporated into the abdominal wall. The recurrent hernia had developed to the left of the prior mesh. The hernia defect measured 9 x 7 cm and patient also had diastases of the rectus muscle. 20 x [address] mesh was selected and 4 separate 2-0 Scipio-Tyrel sutures were placed at the 4 corners of the mesh. Grannie needle was passed through the stab incisions and used to grasp the free ends of the Scipio-Tyrel sutures which were used to pull the mesh up against the abdominal wall; 5 mm SecurStraps were placed 1 cm apart along the edge of the mesh to hold it against the abdominal wall with the superior extent of the Securestraps being at the costal margin at the end of this, it was noted that the mesh was well positioned over the hernial defect. 20 cc of saline mixed with 20cc of Exparel mixed with 20cc of 0.5% Marcaine was infiltrated in the midclavicular line bilaterally under laparoscopic visualization for a TAP block. All ports were removed under direct visualization and there was no bleeding noted from the port sites. The external oblique aponeurosis was approximated at LUQ port site using figure of eight 0 Vicryl suture. The subcutaneous tissue was approximated using 3-0 Vicryl sutures. The skin at all 3 port sites was closed using subcuticular 4-0 Monocryl suture. The stab incisions and the port sites were covered with Arnaldo mabond. Abdominal binder was placed at the end of the procedure and the patient was extubated and transferred to recovery room in stable condition.
[2021-08-15] MEDS: oxyCODONE-APAP 5-325 mg Tablet 1 TAB PO (10:04)
[2021-08-15] MEDS: HYDROmorphone 1 mg/mL INJ 1 mL IVP (10:11)
--- NOTE | 2021-08-15 14:31 | ANE.PACU2 ---
Inpatient post-anesthesia follow up: Airway intact: Yes Vital signs: Temperature 98 F Pulse Rate 73 Respiratory Rate 19 Blood Pressure 163/97 Pulse Oximetry 96 Oxygen Delivery Me thod Room Air Oxygen Flow Rate 6 Fraction of Inspir ed Oxygen Hydration adequate: Yes Nausea and vomiting: No Pain level: 1 Mental status: Baseline
== END 2021-08-15 10:52 | disposition home or self-care (01) ==
PROVIDERS: PCP Internal Medicine; Visit Provider Surgery
PROC: 0WQF4ZZ Repair Abdominal Wall, Percutaneous Endoscopic Approach (ICD-10-PCS; CPT 49657; principal; 2021-08-15 07:45)
DX: K43.0 Incisional hernia with obstruction, without gangrene (principal); F17.220 Nicotine dependence, chewing tobacco, uncomplicated; G47.30 Sleep apnea, unspecified; I10 Essential (primary) hypertension; K21.9 Gastro-esophageal reflux disease without esophagitis; E78.5 Hyperlipidemia, unspecified; E66.01 Morbid (severe) obesity due to excess calories; Z68.41 Body mass index [BMI] 40.0-44.9, adult; M19.90 Unspecified osteoarthritis, unspecified site; F41.9 Anxiety disorder, unspecified; F32.9 Major depressive disorder, single episode, unspecified
CPT/HCPCS: 49657; C1718; C9290; J0330; J0690; J1100; J1170; J2175; J2250; J2405; J2704; J2710; J3010; J3490; J7030

== ENCOUNTER 2021-08-15 06:23 | Outpatient (CLI) | payer MEDICAID, SELFPAY ==
[2021-08-15 07:49] LABS: Basophils # 0.1 10^3/uL (0.0-0.1); Basophils % 0.9 %; Eosinophils # 0.2 10^3/uL (0.0-0.8); Eosinophils % 2.3 %; Hematocrit 48.7 % (42.0-52.0); Hemoglobin 15.9 g/dL (11.7-16.6); Lymphocytes # 2.4 10^3/uL (0.8-4.8); Lymphocytes % 31.6 %; Mean Corpuscular HGB Conc 32.6 g/dL (30.0-36.0); Mean Corpuscular Hemoglobin 29.2 pg (28.0-34.0); Mean Corpuscular Volume 89.4 fl (80-94); Mean Platelet Volume 10.4 fL (7.4-10.4); Monocytes # 0.7 10^3/uL (0.2-0.9); Monocytes % 8.9 %; Neutrophils # 4.16 10^3/uL (1.8-7.7); Neutrophils % 55.9 %; Nucleated Red Blood Cells % 0 %; Platelet Count 331 10^3/cmm (130-400); Red Blood Count 5.45 10^6/uL (4.1-5.3); Red Cell Distribution Width 12.4 % (12.1-15.1); White Blood Count 7.4 10^3/uL (4.0-10.0)
[2021-08-15 08:18] LABS: Alanine Aminotransferase 33 U/L (0-41); Albumin Level 4.9 g/dL (3.5-5.2); Alkaline Phosphatase 91 IU/L (40-130); Anion Gap 16.6 (5-19); Aspartate Amino Transferase 25 U/L (0-40); Blood Urea Nitrogen 11 mg/dL (6-20); Calcium 9.2 mg/dL (8.5-10.5); Carbon Dioxide 25 mmol/L (22-29); Chloride 102 mmol/L (98-107); Globulin 2.6 g/dL (1.3-4.6); Glucose 111 mg/dL (65-115); Osmolality Calculated 290 mOsm/kg (285-295); Potassium 3.6 mmol/L (3.5-5.1); Sodium 140 mmol/L (136-145); Testosterone Total 447.4 ng/dL (249-836); Thyroid Stimulating Hormone 2.13 uIU/mL (0.27-4.20); Total Bilirubin 0.4 mg/dL (0.15-1.2); Total Protein 7.5 g/dL (6.6-8.7)
[2021-08-15 08:47] LABS: Follicle Stimulating Hormone 3.9 mIU/mL (1.5-12.4); Luteinizing Hormone 2.9 mIU/mL (1.7-8.6)
[2021-08-16 08:43] LABS: T4 Total 6.8 mcg/dL (4.9-10.5)
== END 2021-08-15 06:24 | disposition home or self-care (01) ==
PROVIDERS: PCP Internal Medicine; Referring Provider Internal Medicine; Visit Provider Internal Medicine
DX: M13.80 Other specified arthritis, unspecified site (principal); Z15.89 Genetic susceptibility to other disease; Z79.899 Other long term (current) drug therapy; R68.82 Decreased libido
CPT/HCPCS: 80053; 83001; 83002; 84146; 84403; 84436; 84443; 85025

== ENCOUNTER → 2021-09-20 08:24 | Outpatient (BNVA) | payer MEDICAID, SELFPAY | PROVIDERS: PCP Internal Medicine; Visit Provider Surgery | DX: M06.00 Rheumatoid arthritis without rheumatoid factor, unspecified site (principal); Z15.89 Genetic susceptibility to other disease; Z79.899 Other long term (current) drug therapy; F17.220 Nicotine dependence, chewing tobacco, uncomplicated | CPT/HCPCS: 99214 ==

== ENCOUNTER → 2021-10-20 10:31 | Outpatient (BNVA) | payer MEDICAID, SELFPAY | PROVIDERS: PCP Internal Medicine; Visit Provider Internal Medicine | DX: E61.1 Iron deficiency (principal); M13.80 Other specified arthritis, unspecified site; Z15.89 Genetic susceptibility to other disease; Z79.899 Other long term (current) drug therapy | CPT/HCPCS: 80053; 85025; 85651; 86140 ==

== ENCOUNTER → 2021-12-06 09:59 | Outpatient (BNVA) | payer MEDICAID, SELFPAY | PROVIDERS: PCP Internal Medicine; Referring Provider Internal Medicine; Visit Provider Internal Medicine | DX: M13.80 Other specified arthritis, unspecified site (principal); M25.50 Pain in unspecified joint | CPT/HCPCS: 80053; 85025; 85651; 86140 ==

== ENCOUNTER → 2022-01-03 08:50 | Outpatient (BNVA) | payer MEDICAID, SELFPAY | PROVIDERS: PCP Internal Medicine; Visit Provider Internal Medicine | DX: M51.27 Other intervertebral disc displacement, lumbosacral region; M79.662 Pain in left lower leg; M79.661 Pain in right lower leg | CPT/HCPCS: 72110; 99203; 99204; 99214 ==

== ENCOUNTER → 2022-02-23 07:47 | Outpatient (BNVA) | payer MEDICAID, SELFPAY | PROVIDERS: PCP Internal Medicine; Referring Provider Physician Assistant; Visit Provider Specialist | DX: G62.89 Other specified polyneuropathies (principal) | CPT/HCPCS: 95909 ==

== ENCOUNTER 2022-03-03 11:23 | Outpatient (CLI) | payer MEDICAID, SELFPAY ==
[2022-03-03 11:43] LABS: Basophils % 0.5 %; Eosinophils # 0.1 10^3/uL (0.0-0.8); Eosinophils % 1.1 %; Hematocrit 48.1 % (42.0-52.0); Hemoglobin 15.9 g/dL (11.7-16.6); Lymphocytes # 2.5 10^3/uL (0.8-4.8); Lymphocytes % 33.5 %; Mean Corpuscular HGB Conc 33.1 g/dL (30.0-36.0); Mean Corpuscular Hemoglobin 29.8 pg (28.0-34.0); Mean Corpuscular Volume 90.1 fl (80-94); Mean Platelet Volume 10.3 fL (7.4-10.4); Monocytes # 0.5 10^3/uL (0.2-0.9); Monocytes % 6.6 %; Neutrophils # 4.29 10^3/uL (1.8-7.7); Nucleated Red Blood Cells % 0 %; Platelet Count 323 10^3/cmm (130-400); Red Blood Count 5.34 10^6/uL (4.1-5.3); Red Cell Distribution Width 13.1 % (12.1-15.1); White Blood Count 7.4 10^3/uL (4.0-10.0)
[2022-03-03 11:44] LABS: Erythrocyte Sedimentation Rate 2 mm/hr (0-10)
[2022-03-03 11:57] LABS: Alanine Aminotransferase 50 U/L (0-41); Albumin Level 4.8 g/dL (3.5-5.2); Alkaline Phosphatase 80 U/L (40-130); Aspartate Amino Transferase 31 U/L (0-40); Blood Urea Nitrogen 7 mg/dL (6-20); Calcium 9.1 mg/dL (8.5-10.5); Carbon Dioxide 25 mmol/L (22-29); Chloride 100 mmol/L (98-107); Globulin 2.9 g/dL (1.3-4.6); Glomerular Filtration Rate 91.3 mL/min (90-130); Glucose 139 mg/dL (65-115); Osmolality Calculated 290 mOsm/kg (285-295); Sodium 140 mmol/L (136-145); Total Bilirubin 0.4 mg/dL (0.15-1.2); Total Protein 7.7 g/dL (6.6-8.7); Uric Acid 6.4 mg/dL (3.4-7.0)
== END 2022-03-03 11:24 | disposition home or self-care (01) ==
LOC: LAB 11:24
PROVIDERS: PCP Internal Medicine; Visit Provider Internal Medicine
DX: M13.80 Other specified arthritis, unspecified site (principal); Z15.89 Genetic susceptibility to other disease
CPT/HCPCS: 80053; 84550; 85025; 85651; 86140

== ENCOUNTER 2022-03-03 11:23 | Outpatient (CLI) | payer MEDICAID, SELFPAY ==
--- NOTE | 2022-03-03 13:00 | MR_ITS ---
WS: [id number] MRI LUMBAR SPINE NONCONTRAST TECHNIQUE: Sagittal T1, T2 and STIR imaging. Axial T1 and T2 imaging. CLINICAL INFORMATION: pain COMPARISON: MRI December 23, 2020 FINDINGS: Mild lumbar curve. No acute compression. No high-grade central canal stenosis. Slight retrolisthesis L4 on L5. L1-L2: Normal. L2-L3: Mild annular bulging. Tiny RIGHT foraminal protrusion with mild RIGHT foraminal narrowing. Sli ght contact of the exiting RIGHT L3 nerve root.This is progressed compared to previous. Slight narrow ing of the RIGHT subarticular recess. L3-L4: Mild annular bulging. Small RIGHT foraminal protrusion impinges the proximal exiting RIGHT L3 nerve root. Mild RIGHT foraminal narrowing. LEFT foramen is patent. Mild facet arthropathy. Slight na rrowing of the RIGHT subarticular recess. Protrusion appears similar to previous. L4-L5: Slight retrolisthesis. Mild disc bulging with slight effacement of ventral thecal sac. Mild fa cet arthropathy. Mild LEFT foraminal narrowing. Spinal canal is patent. L5-S1: Mild annular bulging with slight effacement of ventral thecal sac. Mild LEFT greater than RIGH T foraminal narrowing. Mild facet arthropathy. Visualized pelvic bony structures: Normal. Paravertebral soft tissues: Normal. MR/MR lumbar spine wo con* [id number] IMPRESSION: 1. Mild lumbar curve. No acute compression. No high-grade central canal stenos is. 2. Small RIGHT foraminal protrusions L2-L3 and L3-L4 with slight impingement o n the exiting RIGHT L2 and L3 nerve roots respectively worse at L3. Recommend c orrelation L3 nerve root symptoms. 3. Mild LEFT L4-L5 bony foraminal narrowing. 4. Mild LEFT L5-S1 bony foraminal narrowing. 5. Mild facet arthropathy L4-L5 and L5-S1.
== END 2022-03-03 11:24 | disposition home or self-care (01) ==
LOC: RAD 11:24
PROVIDERS: PCP Internal Medicine; Visit Provider Physician Assistant
DX: M51.26 Other intervertebral disc displacement, lumbar region (principal); M47.816 Spondylosis without myelopathy or radiculopathy, lumbar region; M47.817 Spondylosis without myelopathy or radiculopathy, lumbosacral region
CPT/HCPCS: 72148

== ENCOUNTER → 2022-03-14 09:19 | Outpatient (BNVA) | payer MEDICAID, SELFPAY | PROVIDERS: PCP Internal Medicine; Visit Provider Orthopaedic Surgery | DX: M48.062 Spinal stenosis, lumbar region with neurogenic claudication (principal); M54.6 Pain in thoracic spine | CPT/HCPCS: 72070; 99214 ==

== ENCOUNTER 2022-04-07 05:52 | Day surgery (SDC) | payer MEDICAID, SELFPAY ==
[2022-04-06 13:40] VITALS: BMI 43.0
[2022-04-07] VITALS (9 sets, daily range): BP systolic 138–172; BP diastolic 78–103; PULSE 62–72; RESP 16–18; TEMP 36.2–36.6; O2SAT 96–100
--- NOTE | 2022-04-07 | SCC_ITS ---
Procedure done: 1. L4/5 laminectomy with partial facetectomies 11 seconds of fluoroscopic guidance, for a cumulative dose of 7.3 mGy, was provided to Dr. Mortensen by the radiology department. C-arm images of the lumbar spine were saved for the patient's permanent record. THELMA
--- NOTE | 2022-04-07 | XR_ITS ---
WS: [id number] Lumbar spine, C-arm fluoroscopy, 04/07/2022 Clinical Data: L4-5 Decompression Comparison: Lumbar spine, 01/02/2022 Findings: Dr. Mortensen performed a lumbar decompression XR/XR lumbar spine 1V [id number] Impression: Lumbar decompression.
--- NOTE | 2022-04-07 06:32 | W.PM.OPSUD ---
Surgery/Procedure H&P Update DATE OF PROCEDURE: April 07, 2022 DATE H&P PERFORMED: 03/14/22 H&P UPDATE INFORMATION: I have reviewed H&P completed within last 30 days, I have examined patient prior to procedure and No changes to prior documentation PREOP DIAGNOSIS: Lumbar stenosis w/Neurogenic Claudication PLANNED PROCEDURE: Operation Date: 04/07/22 07:00 Proposed Procedures p Lumbar Spine Decompression L4/5/M48.062(Not Applicable) - Taqueria Mortensen DO
--- NOTE | 2022-04-07 06:40 | P.ANESASSM_ITS ---
Pre-Anesthetic Assessment Height/Weight: Height 1.78 m Weight 136.078 kg Temp Pulse Resp BP Pulse Ox O2 Del Method 98 F 71 16 152/101 97 04/07/22 06:28 04/07/22 06:28 04/07/22 06:28 04/07/22 06:28 04/07/22 06:28 04/07/22 06:28 Preop Diagnosis: Lumbar stenosis w/Neurogenic Claudication Operation Date: 04/07/22 07:00 Proposed Procedures p Lumbar Spine Decompression L4/5/M48.062(Not Applicable) - Taqueria Mortensen, DO Familial anesthetic complications: Wake up grumpy Was Beta Aida taken within 24 hours: N/A Was Clonidine taken within 24 hours: N/A Last intake: Intake Last Liquid Date 04/06/22 Last Liquid Time 17:45 Last Solid Date 04/06/22 Last Solid Time 17:45 Social Tobacco (Chews, hasn't used since yesterday morning) and No alcohol Exam alert, oriented x 3, clear to auscultation bilaterally and regular rate & rhythm Airway Submandibular: within normal limits Cervical ROM: within normal limits (Some cervical pain noted, still has full ROM) Mallampati: Class III Dentition: full History/ROS No significant history except as noted and No significant complaints Pulmonary Exertional Dyspnea, Sleep Apnea (CPAP) and Shortness of Breath (SOB with activity but not at rest) CV/HEM Hypertension and Murmur Xiphoid bone removed by Dr. Dukes, no chest pain since None reported Hepatic None reported GI Gastroesophageal Reflux Disease (Controlled with meds), Hiatal Hernia (Had surgery to repair) and Peptic Ulcer Disease Crohns Metabolic Morbid Obesity HBLA-27 Musc/skel Lower Back Pain, Osteoarthritis/DJD and Rheumatoid Arthritis Osteoporosis Neuropsych Anxiety, Depression and Neuropathy Anesthetic Plan ASA status: 3 Anesthesia: Anesthesia Evaluation and General Risk of > 500 ml blood loss (7ml/kg in children): No Medications/Allergies Home Medications Medication Instructions Recorded Confirmed Last Taken Type cetirizine 10 mg tablet (Zyrtec) 10 mg PO DAILY 06/12/19 04/07/22 04/06/22 History multivitamin 1 tab PO DAILY 03/24/21 04/07/22 04/06/22 History cane #1 ea 03/30/21 03/14/22 Unknown Rx docusate sodium 100 mg capsule 100 mg PO BID #30 caps 08/15/21 04/07/22 04/06/22 Rx (Colace) ondansetron HCl 4 mg tablet 4 mg PO Q6H PRN nausea and 08/15/21 04/06/22 Unknown Rx (Zofran) vomiting #20 tabs celecoxib 200 mg capsule (Celebrex) 200 mg PO BID #60 caps 08/29/21 04/07/22 04/06/22 Rx folic acid 1 mg tablet 2 mg PO DAILY #180 tabs 09/22/21 04/07/22 04/06/22 Rx sulfasalazine 500 mg tablet 0.5 g PO BID #60 tabs 12/05/21 04/07/22 04/06/22 Rx duloxetine 30 mg capsule,delayed 30 mg PO DAILY #30 caps 12/20/21 04/07/22 04/06/22 Rx release tofacitinib 11 mg tablet,extended 11 mg PO DAILY #30 tabs 01/03/22 04/07/22 04/06/22 Rx release 24 hr (Xeljanz XR) methotrexate sodium 2.5 mg tablet 15 mg PO .qweek #30 tabs 01/06/22 04/07/22 04/05/22 Rx duloxetine 60 mg capsule,delayed 60 mg PO DAILY #30 caps 01/17/22 04/07/22 04/06/22 Rx release hydroxychloroquine 200 mg tablet See Rx Instructions .Route 01/26/22 04/07/22 04/06/22 Rx .COMPLEX #60 tabs methocarbamol 750 mg tablet 750 mg PO TID PRN spasms 30 days 03/09/22 04/07/22 04/07/22 Rx #90 tabs aripiprazole 5 mg tablet (Abilify) 5 mg PO DAILY #30 tabs 04/05/22 04/07/22 04/06/22 Rx hydrocodone 10 mg-acetaminophen 1 tab PO Q6H PRN Pain, Severe 04/06/22 04/07/22 04/06/22 History 325 mg tablet cyclobenzaprine 10 mg tablet 10 mg PO TID PRN muscle spasms 04/07/22 04/07/22 Unknown History dexlansoprazole 60 mg 60 mg PO DAILY 04/07/22 04/07/22 04/06/22 History capsule,biphase delayed release gabapentin 400 mg capsule 400 mg PO BID 04/07/22 04/07/22 04/07/22 History lisinopril 20 1 tab PO DAILY 04/07/22 04/07/22 04/06/22 History mg-hydrochlorothiazide 25 mg tablet nifedipine 60 mg tablet,extended 60 mg PO DAILY 04/07/22 04/07/22 04/06/22 History release Allergies Allergy/AdvReac Type Severity Reaction Status Date / Time No Known Allergies Allergy Verified 04/06/22 13:27 [facility] Anesthesia Medical History Chronic midline low back pain with bilateral sciatica Chronic thoracic spine pain Depression HLA B27 (HLA B27 positive) Numbness and tingling of hand Surgical History History of colonoscopy 2019 History of esophagogastroduodenoscopy (EGD) 2019 History of incisional hernia repair Laparoscopic repair for recurrent incisional hernia S/P appendectomy S/P tonsillectomy Status post epigastric hernia repair, follow-up exam Status post skin graft Family History Father Cancer CAD (coronary artery disease) Grandmother CAD (coronary artery disease) MATERNAL Other Arthritis Hypertension Social History Smoking and tobacco status: current every day smoker (chewing tobacco) smokeless tobacco Smokeless tobacco user: chewing tobacco Smokeless tobacco details: 1 can per day Second hand smoke exposure: No Alcohol intake: never History of recent travel: No Data Anesthesia Cardiac Studies: No Data to Display
[2022-04-07] MEDS: sodium chloride 0.9% 1,000 ML 30 ML IV (06:53)
[2022-04-07] MEDS: ceFAZolin 2,000 MG in sodium chloride 0.9% (plus) 50 ML 100 MG IV (07:02)
[2022-04-07] MEDS: fentaNYL 50 mcg/mL INJ 2mL IVP (08:20)
--- NOTE | 2022-04-07 08:20 | PM.OP ---
Operative Report Date of procedure: April 07, 2022 Pre-op diagnosis: Preop Diagnosis Lumbar stenosis w/Neurogenic Claudication Post-op diagnosis: same Procedure done: 1. L4/5 laminectomy with partial facetectomies Surgeon: Taqueria Mortensen Estimated blood loss (mL): 5 Procedure: 1. L4/5 laminectomy with partial facetectomies Patient is brought to the operative suite. After undergoing anesthesia they are placed in the prone position. All areas of impingement are well padded. Patient is then prepped and draped in the normal sterile fashion. A skin incision is made over the L4/5 level. This is confirmed under c-arm guidance. A series of dilators are passed and the tubular retractor is docked on the L4 lamina. A bovie is used to clear the soft tissue off the lamina and the L 4/5 facet joint. A high speed ainsley is then used to perform the laminectomy and take down the medial aspect of the L 4/5 facet joint. A kerrison rongeure was then used to take down the remaining lamina and smooth the edged of the laminectomy up to the point where the ligamentum flavum attaches. Attention was then brought to the medial aspect of the facet joint. The remaining medial aspect of the superior and inferior aspect of the facet joint were taken down with the kerrison from the pedicle of L4 to L 5. The facet joint had significant hypertrophy. Attention was then brought to the Ligamentum Flavum. The ligament was taken down from the lamina of L4 to L5 and out medially to the remaining facet joint. The ligament was thick. The dura was then exposed. The dura was in good repair. The L4 nerve was then traced with a curette out the L4/5 foramen and found to be adequately decompressed. The L5 nerve was traced with a curette around the L5 pedicle. The lateral recess was opened with a kerrison helping to further decompress the L5 nerve. The tubular retractor was then tilted to the contralateral side. The bovie was used to take down the soft tissue on the spinous process. The high speed ainsley was used to take down the spinous process and then the contralateral lamina of L4. The kerrison rongeur was used to take down the remaining lamina to the point where the ligamentum flavum attached and the ligamentum flavum was taken down from L4 to L5. The kerrison rongeur was then used to reach across and take down the medial aspect of the contralateral L4/5 facet joint.The currete was used to trace the contralateral L4 nerve out the L4/5 foramen to make sure it was decompressed adequatesly and the L5 was traced around the L5 pedicle. The lateral recess was opened further with the kerrison to ensure the L5 is adequately decompressed. Wound is then irrigated copiously with saline and surgiflo is used to stop any bleeding. The tubular retractor is removed and the wound is closed with vicryl and monocryl suture. Glue is then used to protect the wound. A sterile dressing is then placed. Patient was then placed in the supine position and transferred to the PACU in stable condition.
[2022-04-07] MEDS: HYDROcodone-acetaminophen 10-325 mg Tablet PO (08:48)
--- NOTE | 2022-04-07 13:26 | ANE.PACU2 ---
Inpatient post-anesthesia follow up: Airway intact: Yes Vital signs: Temperature 97.6 F Pulse Rate 70 Respiratory Rate 17 Blood Pressure 160/100 Pulse Oximetry 98 Oxygen Delivery Me thod Room Air Oxygen Flow Rate 6 Fraction of Inspir ed Oxygen Hydration adequate: Yes Nausea and vomiting: No Pain level: 3 Mental status: Baseline
== END 2022-04-07 10:05 | disposition home or self-care (01) ==
PROVIDERS: PCP Internal Medicine; Visit Provider Orthopaedic Surgery
PROC: (CPT 63005; principal; 2022-04-07 07:00)
DX: M48.062 Spinal stenosis, lumbar region with neurogenic claudication (principal); F17.220 Nicotine dependence, chewing tobacco, uncomplicated; G47.30 Sleep apnea, unspecified; I10 Essential (primary) hypertension; K21.9 Gastro-esophageal reflux disease without esophagitis; Z87.11 Personal history of peptic ulcer disease; E66.01 Morbid (severe) obesity due to excess calories; Z68.41 Body mass index [BMI] 40.0-44.9, adult; M06.9 Rheumatoid arthritis, unspecified; F41.9 Anxiety disorder, unspecified; F32.A Depression, unspecified
CPT/HCPCS: 63047; 72020; 76000; J0330; J1100; J2250; J2405; J2704; J2710; J3010; J3490; J7030

== ENCOUNTER → 2022-04-18 09:10 | Outpatient (BNVA) | payer MEDICAID, SELFPAY | PROVIDERS: PCP Internal Medicine; Visit Provider Internal Medicine | DX: M48.062 Spinal stenosis, lumbar region with neurogenic claudication (principal); R74.01 Elevation of levels of liver transaminase levels; Z15.89 Genetic susceptibility to other disease; Z79.899 Other long term (current) drug therapy; Z98.890 Other specified postprocedural states | CPT/HCPCS: 99214 ==

== ENCOUNTER → 2022-04-25 11:11 | Outpatient (BNVA) | payer MEDICAID, SELFPAY | PROVIDERS: PCP Internal Medicine; Visit Provider Physician Assistant | DX: Z47.89 Encounter for other orthopedic aftercare (principal) | CPT/HCPCS: 99024 ==

== ENCOUNTER → 2022-05-30 11:12 | Outpatient (BNVA) | payer MEDICAID, SELFPAY | PROVIDERS: PCP Internal Medicine; Visit Provider Physician Assistant | DX: Z98.890 Other specified postprocedural states (principal) | CPT/HCPCS: 99024 ==

== ENCOUNTER → 2022-07-24 09:48 | Outpatient (BNVA) | payer MEDICAID, SELFPAY | PROVIDERS: PCP Internal Medicine; Visit Provider Internal Medicine | DX: M25.50 Pain in unspecified joint (principal); Z15.89 Genetic susceptibility to other disease; M13.80 Other specified arthritis, unspecified site; Z79.899 Other long term (current) drug therapy | CPT/HCPCS: 80053; 85025; 85651; 86140 ==

== ENCOUNTER → 2022-07-28 11:37 | Outpatient (BNVA) | payer MEDICAID, SELFPAY | PROVIDERS: PCP Internal Medicine; Visit Provider Internal Medicine | DX: Z15.89 Genetic susceptibility to other disease (principal); Z79.899 Other long term (current) drug therapy; R74.01 Elevation of levels of liver transaminase levels; G47.30 Sleep apnea, unspecified | CPT/HCPCS: 99213 ==

== ENCOUNTER → 2022-08-03 08:54 | Outpatient (BNVA) | payer MEDICAID, SELFPAY | PROVIDERS: PCP Internal Medicine; Visit Provider Physician Assistant | DX: Z98.890 Other specified postprocedural states (principal) | CPT/HCPCS: 99212 ==

== ENCOUNTER → 2022-12-15 10:28 | Outpatient (BNVA) | payer MEDICARE, MEDICAID, SELFPAY | PROVIDERS: PCP Internal Medicine; Visit Provider Internal Medicine | DX: M06.00 Rheumatoid arthritis without rheumatoid factor, unspecified site (principal); M13.80 Other specified arthritis, unspecified site; M25.50 Pain in unspecified joint; Z15.89 Genetic susceptibility to other disease; Z79.899 Other long term (current) drug therapy; G47.30 Sleep apnea, unspecified | CPT/HCPCS: 99214 ==

== ENCOUNTER → 2024-07-24 14:58 | Outpatient (BNVA) | payer MEDICARE, OTHER, SELFPAY | PROVIDERS: PCP Internal Medicine Infectious Disease; Visit Provider Orthopaedic Surgery | DX: Z98.890 Other specified postprocedural states (principal); M48.062 Spinal stenosis, lumbar region with neurogenic claudication | CPT/HCPCS: 72110; 99213 ==

== ENCOUNTER 2024-08-14 10:57 | Outpatient (CLI) | payer OTHER, SELFPAY ==
--- NOTE | 2024-08-14 11:00 | MR_ITS ---
WS: [id number] MRI CERVICAL SPINE NONCONTRAST HISTORY: neck pain pain radiating down RIGHT arm. COMPARISON: None available. Technique: Multiplanar, multisequence noncontrast imaging of the cervical spine. Straightening of the normal cervical lordosis. Slight reversal centered at C4. Signal within the cervical cord is normal. Visualized posterior fossa is unremarkable. Craniocervical junction, C1 and C2 relationship, odontoid process and soft tissues are normal. C2-C3: Normal. C3-C4: Mild annular disc bulging and osteophytic ridging. Mild facet arthritis. Very small foraminal osteophytes. No stenosis. C4-C5: Mild annular disc bulging with a tiny central disc protrusion effacing CSF. Small foraminal osteophytes. Minimal facet arthritis. No high-grade stenosis. C5-C6: Mild annular disc bulging and facet arthritis. Small LEFT foraminal osteophytes. Mild LEFT foraminal stenosis. C6-C7: Mild disc bulging and facet arthritis. Small foraminal osteophytes. Mild LEFT foraminal stenosis. C7-T1: Normal. Paraspinal soft tissue are normal. MR/MR cervical spin wo con* [id number] IMPRESSION: 1. No high-grade central or foraminal stenosis or large disc protrusions. 2. Small foraminal osteophytes at C3-4 without stenosis. 3. Mild facet arthritis from C3-4 through C6-7. 4. Tiny central disc protrusion at C4-5. Small foraminal osteophytes without s tenosis. 5. Mild LEFT foraminal stenosis at C6-7 and C5-6 due to osteophytes.
--- NOTE | 2024-08-14 11:45 | MR_ITS ---
WS: [id number] MRI LUMBAR SPINE NONCONTRAST HISTORY: back pain, low back pain with radiculopathy. History of laminectomy and fasciectomy's. COMPARISON: 03/03/2022 TECHNIQUE: Sagittal and axial multisequence imaging is submitted. Normal lumbar alignment with no compression fractures or marrow edema. Disc spaces and vertebral body heights are well-preserved. Conus terminates normally at L1. L1-L2: Normal. L2-L3: Mild disc bulging with a RIGHT foraminal disc protrusion. Disc protrusion has increased in size with slightly greater contact on the exiting RIGHT L3 nerve root. There is also an osteophyte contributing to the moderate stenosis. Mild LEFT foraminal stenosis. Mild disc encroachment upon the subarticular recesses, RIGHT greater than LEFT. L3-L4: Mild annular disc bulging with a RIGHT foraminal disc protrusion and osteophyte. Disc osteophyte impinging upon the exiting RIGHT L3 nerve root with mild foraminal narrowing. L4-L5: Small LEFT hemilaminectomy defect. Mild annular disc bulging. Mild effacement of ventral CSF and facet arthritis. Mild subarticular recess encroachment. Disc osteophyte and facet arthritis causing narrowing of the foramina, mild to moderate on the LEFT and mild on the RIGHT. L5-S1: Mild annular disc bulging and minimal subarticular recess encroachment. Mild bilateral foraminal narrowing. There is very slight disc contact on the exiting L5 nerve roots. Paravertebral soft tissues are normal. MR/MR lumbar spine wo con* [id number] IMPRESSION: 1. New LEFT hemilaminectomy defect at L4-5. 2. No acute lumbar spine fracture. 3. L2-3: RIGHT foraminal disc protrusion has slightly increased in size with s lightly greater contact on the exiting RIGHT L3 nerve root. Moderate RIGHT fora ay[place] stenosis. Additional mild LEFT and bilateral subarticular recess encroach ment at L2-3. 4. L3-4: Stable RIGHT foraminal disc protrusion and osteophyte. Mild foraminal narrowing. 5. L4-5: Mild to moderate LEFT and mild RIGHT foraminal stenosis due to combin ation of disc and osteophyte disease and facet arthropathy. Mild progression of foraminal stenosis since the prior study. 6. L5-S1: Mild bilateral foraminal narrowing. Minimal disc contact on the exit ing L5 nerve roots.
== END 2024-08-14 10:58 | disposition home or self-care (01) ==
PROVIDERS: PCP Internal Medicine Infectious Disease; Visit Provider Orthopaedic Surgery
DX: M51.27 Other intervertebral disc displacement, lumbosacral region (principal); M54.2 Cervicalgia; M96.89 Other intraoperative and postprocedural complications and disorders of the musculoskeletal system; M51.26 Other intervertebral disc displacement, lumbar region; M48.061 Spinal stenosis, lumbar region without neurogenic claudication; R93.7 Abnormal findings on diagnostic imaging of other parts of musculoskeletal system; M25.78 Osteophyte, vertebrae; M47.896 Other spondylosis, lumbar region; M48.07 Spinal stenosis, lumbosacral region; M51.369 Other intervertebral disc degeneration, lumbar region without mention of lumbar back pain or lower extremity pain; M51.379 Other intervertebral disc degeneration, lumbosacral region without mention of lumbar back pain or lower extremity pain
CPT/HCPCS: 72141; 72148

== ENCOUNTER → 2024-08-19 14:52 | Outpatient (BNVA) | payer OTHER, SELFPAY | PROVIDERS: PCP Internal Medicine Infectious Disease; Visit Provider Orthopaedic Surgery | DX: M54.2 Cervicalgia (principal); M48.062 Spinal stenosis, lumbar region with neurogenic claudication; M54.9 Dorsalgia, unspecified | CPT/HCPCS: 36415; 72050; 80053; 81001; 85025 ==

== ENCOUNTER → 2024-09-09 08:49 | Outpatient (BNVA) | payer OTHER, SELFPAY | PROVIDERS: PCP Internal Medicine Infectious Disease; Visit Provider Family Medicine | DX: Z01.818 Encounter for other preprocedural examination (principal) | CPT/HCPCS: 80048; 81003 ==

== ENCOUNTER 2024-09-16 06:00 | Outpatient (RCR) | payer MEDICARE, SELFPAY | END 2024-10-15 23:59 | disposition home or self-care (01) | LOC: GPT 06:00 | PROVIDERS: Visit Provider Orthopaedic Surgery | DX: M54.9 Dorsalgia, unspecified (principal); G89.29 Other chronic pain | CPT/HCPCS: 97110; 97112; 97163; 97535 ==

== ENCOUNTER 2024-10-16 06:30 | Outpatient (RCR) | payer MEDICARE, SELFPAY | END 2024-10-20 09:41 | disposition home or self-care (01) | LOC: GPT 06:30 | PROVIDERS: Visit Provider Orthopaedic Surgery | DX: M54.9 Dorsalgia, unspecified (principal); G89.29 Other chronic pain | CPT/HCPCS: 97112; 97164; 97535 ==

== ENCOUNTER 2024-11-28 08:39 | Day surgery (SDC) | payer MEDICARE, SELFPAY ==
[2024-11-28] VITALS (23 sets, daily range): BP systolic 147–235; BP diastolic 94–145; PULSE 68–88; RESP 10–19; TEMP 36.1–36.6; O2SAT 92–99; BMI 46.2
[2024-11-28] MEDS: midazolam 1 mg/mL INJ 2 mL 2 MG IVP (09:39)
[2024-11-28] MEDS: sodium chloride 0.9% 1,000 ML 30 ML IV (09:40)
--- NOTE | 2024-11-28 09:42 | ANES.PREANE2 ---
Pre-Anesthetic Assessment Height/Weight: Height 5 ft 10 in Weight 322 lb Temp Pulse Resp BP Pulse Ox O2 Del Method 97.8 F 88 18 235/145 96 Room Air 11/28/24 09:13 11/28/24 09:13 11/28/24 09:13 11/28/24 09:13 11/28/24 09:13 11/28/24 09:13 Preop Diagnosis: Lumbar stenosis with neurogenic claudication Operation Date: 11/28/24 10:40 Proposed Procedures p Lumbar Spine Decompression(Not Applicable) - Taqueria Mortensen, DO Was Beta Aida taken within 24 hours: N/A (Stop taking beta-aida 1 week ago) Was Clonidine taken within 24 hours: N/A Last intake: Intake Last Liquid Date 11/27/24 Last Liquid Time 23:00 Last Solid Date 11/27/24 Last Solid Time 15:30 Social Tobacco (Chews tobacco) and No alcohol Exam alert, oriented x 3, clear to auscultation bilaterally and regular rate & rhythm (Murmur on auscultation) Airway Submandibular: Other (Large neck circumference) Cervical ROM: Other (Very limited) Mallampati: Class III Dentition: full Anesthetic Plan ASA status: 3 Anesthesia: General Other: Patient states that he wakes up crazy from anesthesia and is combative NPO since yesterday evening History of hypertension on amlodipine, lisinopril and carvedilol. Patient mistakingly has taken himself off these for the last week. Preop BP 235/145. Given patient has no antihypertensives in his system, will plan on placing IV and give labetalol and make sure patient responds accordingly. Repeat BP 150/100 after labetalol History of NICO, wears CPAP Chews tobacco BMI 46. Patient is HLA-B27 positive, has not been formally diagnosed with ankylosing spondylosis but has very limited neck mobility and range of motion Labs reviewed Grade 1 view with GlideScope in the past Plan for GETA Medications/Allergies Home Medications ?Medication ?Instructions ?Recorded ?Confirmed ?Last Taken ?Type cane #1 ea 03/30/21 11/27/24 Unknown Rx duloxetine 60 mg capsule,delayed 60 mg PO DAILY #30 caps 01/17/22 11/28/24 1 Week Ago Rx release ~11/20/24 diclofenac sodium 1 % topical gel 4 g topical QID #100 grams 08/01/22 11/28/24 11/27/24 Rx (Arthritis Pain (diclofenac)) amlodipine 10 mg tablet (Norvasc) 10 mg PO DAILY 07/24/24 11/28/24 1 Week Ago History ~11/20/24 carvedilol 6.25 mg tablet 6.25 mg PO BID 07/24/24 11/28/24 1 Week Ago History ~11/20/24 celecoxib 200 mg capsule (Celebrex) 200 mg PO BID 07/24/24 11/28/24 1 Week Ago History ~11/20/24 lisinopril 40 mg tablet 40 mg PO DAILY 07/24/24 11/28/24 1 Week Ago History ~11/20/24 potassium chloride 20 mEq 20 meq PO BID 07/24/24 11/28/24 11/26/24 History tablet,extended release (K-Tab) trazodone 150 mg tablet 150 mg PO DAILY 07/24/24 11/28/24 11/26/24 History amitriptyline 75 mg tablet 75 mg PO DAILY 09/09/24 11/28/24 11/27/24 History divalproex 125 mg tablet,delayed 125 mg PO DAILY 09/09/24 11/28/24 1 Week Ago History release ~11/20/24 duloxetine 30 mg capsule,delayed 30 mg PO DAILY 09/09/24 11/28/24 1 Week Ago History release ~11/20/24 folic acid 1 mg tablet 1 mg PO BID 09/09/24 11/28/24 11/27/24 History hydralazine 50 mg tablet 50 mg PO DAILY 09/09/24 11/28/24 1 Week Ago History ~11/20/24 hydrochlorothiazide 25 mg tablet 25 mg PO DAILY 09/09/24 11/28/24 1 Week Ago History ~11/20/24 hydrocodone 10 mg-acetaminophen 1 tab PO TID PRN Pain, Severe 09/09/24 11/28/24 11/28/24 History 325 mg tablet hydroxyzine HCl 10 mg tablet See Rx Instructions PO Q4H PRN 09/09/24 11/28/24 11/23/24 History Anxiety levothyroxine 75 mcg tablet 75 mcg PO DAILY 09/09/24 11/28/24 11/28/24 History (Synthroid) nifedipine 60 mg tablet,extended 120 mg PO DAILY 09/09/24 11/28/24 1 Week Ago History release ~11/20/24 pramipexole 1.5 mg tablet 1.5 mg PO TID 09/09/24 11/28/24 11/27/24 History tizanidine 4 mg capsule 4 mg PO TID PRN Muscle Spasm 09/09/24 11/28/24 11/26/24 History gabapentin 600 mg tablet 1,800 mg PO DAILY 11/27/24 11/28/24 11/27/24 History hydroxychloroquine 200 mg tablet 200 mg PO BID 11/27/24 11/28/24 11/24/24 History methotrexate sodium 2.5 mg tablet See Rx Instructions .Route .COMPLEX 11/27/24 11/28/24 1 Week Ago History ~11/20/24 sulfasalazine 500 mg tablet 500 mg PO BID 11/27/24 11/28/24 11/24/24 History Allergies Allergy/AdvReac Type Severity Reaction Status Date / Time vancomycin AdvReac red man Verified 11/28/24 09:02 syndrome Current Medications Generic Name Dose Route Start Last Admin Trade Name Freq PRN Reason Stop Dose Admin Sodium Chloride 1,000 mls @ 30 mls/hr 11/28/24 09:00 11/28/24 09:40 Sodium Chloride 0.9% IV 11/29/24 08:59 30 mls/hr .Q24H MORELIA Administration Midazolam HCl 2 mg 11/28/24 08:49 11/28/24 09:39 Midazolam 1 Mg/Ml Inj 2 Ml IVP 2 mg Q5M PRN Administration Preop Anxiety PFSH Anesthesia Medical History Transaminitis Hypokalemia Depression HLA B27 (HLA B27 positive) Numbness and tingling of hand Chronic midline low back pain with bilateral sciatica Chronic thoracic spine pain Surgical History History of incisional hernia repair Laparoscopic repair for recurrent incisional hernia History of colonoscopy 2019 History of esophagogastroduodenoscopy (EGD) 2019 Status post epigastric hernia repair, follow-up exam S/P tonsillectomy S/P appendectomy Status post skin graft Family History Father Cancer CAD (coronary artery disease) Grandmother CAD (coronary artery disease) MATERNAL Other Arthritis Hypertension Social History Smoking and tobacco/nicotine status: never used tobacco/nicotine Second hand smoke exposure: No Alcohol intake: never Substance/Drug Use: never
--- NOTE | 2024-11-28 09:43 | W.PM.OPSFHP ---
Same Day Surgery H&P Indication for Procedure/HPI DATE OF PROCEDURE: November 28, 2024 CHIEF COMPLAINT/INDICATIONFOR SURGICAL PROCEDURE: back and leg pain PREOP DIAGNOSIS: Lumbar stenosis with neurogenic claudication PLANNED PROCEDURE: Operation Date: 11/28/24 10:40 Proposed Procedures p Lumbar Spine Decompression(Not Applicable) - Taqueria Mortensen, DO Medications/Allergies* Home Medications ?Medication ?Instructions ?Recorded ?Confirmed ?Type amlodipine 10 mg tablet (Norvasc) 10 mg PO DAILY 07/24/24 11/28/24 History carvedilol 6.25 mg tablet 6.25 mg PO BID 07/24/24 11/28/24 History celecoxib 200 mg capsule (Celebrex) 200 mg PO BID 07/24/24 11/28/24 History lisinopril 40 mg tablet 40 mg PO DAILY 07/24/24 11/28/24 History potassium chloride 20 mEq 20 meq PO BID 07/24/24 11/28/24 History tablet,extended release (K-Tab) trazodone 150 mg tablet 150 mg PO DAILY 07/24/24 11/28/24 History amitriptyline 75 mg tablet 75 mg PO DAILY 09/09/24 11/28/24 History divalproex 125 mg tablet,delayed 125 mg PO DAILY 09/09/24 11/28/24 History release duloxetine 30 mg capsule,delayed 30 mg PO DAILY 09/09/24 11/28/24 History release folic acid 1 mg tablet 1 mg PO BID 09/09/24 11/28/24 History hydralazine 50 mg tablet 50 mg PO DAILY 09/09/24 11/28/24 History hydrochlorothiazide 25 mg tablet 25 mg PO DAILY 09/09/24 11/28/24 History hydrocodone 10 mg-acetaminophen 1 tab PO TID PRN Pain, Severe 09/09/24 11/28/24 History 325 mg tablet hydroxyzine HCl 10 mg tablet See Rx Instructions PO Q4H PRN 09/09/24 11/28/24 History Anxiety levothyroxine 75 mcg tablet 75 mcg PO DAILY 09/09/24 11/28/24 History (Synthroid) nifedipine 60 mg tablet,extended 120 mg PO DAILY 09/09/24 11/28/24 History release pramipexole 1.5 mg tablet 1.5 mg PO TID 09/09/24 11/28/24 History tizanidine 4 mg capsule 4 mg PO TID PRN Muscle Spasm 09/09/24 11/28/24 History gabapentin 600 mg tablet 1,800 mg PO DAILY 11/27/24 11/28/24 History hydroxychloroquine 200 mg tablet 200 mg PO BID 11/27/24 11/28/24 History methotrexate sodium 2.5 mg tablet See Rx Instructions .Route .COMPLEX 11/27/24 11/28/24 History sulfasalazine 500 mg tablet 500 mg PO BID 11/27/24 11/28/24 History Allergies/Adverse Reactions Allergy/AdvReac Type Severity Reaction Status Date / Time vancomycin AdvReac red man Verified 11/28/24 09:02 syndrome Current Medications: Generic Name Dose Route Start Last Admin Trade Name Freq PRN Reason Stop Dose Admin Sodium Chloride 1,000 mls @ 30 mls/hr 11/28/24 09:00 11/28/24 09:40 Sodium Chloride 0.9% IV 11/29/24 08:59 30 mls/hr .Q24H MOERLIA Administration Midazolam HCl 2 mg 11/28/24 08:49 11/28/24 09:39 Midazolam 1 Mg/Ml Inj 2 Ml IVP 2 mg Q5M PRN Administration Preop Anxiety Pertinent History/Comorbid Conditions* Medical History (Updated 04/18/22 @ 10:16 by Ynes Huizar MD) Transaminitis Hypokalemia Depression HLA B27 (HLA B27 positive) Numbness and tingling of hand Chronic midline low back pain with bilateral sciatica Chronic thoracic spine pain Surgical History (Updated 04/25/22 @ 14:06 by Maicol Fallon PA-C) History of incisional hernia repair Laparoscopic repair for recurrent incisional hernia History of colonoscopy 2019 History of esophagogastroduodenoscopy (EGD) 2020 Status post epigastric hernia repair, follow-up exam S/P tonsillectomy S/P appendectomy Status post skin graft Family History (Updated 06/20/19 @ 08:25 by Margot Escobar LPN) CAD (coronary artery disease) Father Grandmother MATERNAL Arthritis Cancer Father Hypertension Social History Smoking and tobacco/nicotine status: never used tobacco/nicotine Second hand smoke exposure: No Alcohol intake: never Substance/Drug Use: never Pertinent Exam Findings alert, oriented x 3, clear to auscultation bilaterally and procedure specific exam findings Recommendations Risks and benefits of procedure reviewed Surgery/Procedure today Coding Level of Care Code Acute Code for Chg Fwd
[2024-11-28] MEDS: labetalol 5 mg/mL SDV 20mL 10 MG IVP (09:44)
[2024-11-28] MEDS: ceFAZolin 3,000 MG in sodium chloride 0.9% (plus) 100 ML 200 MG IV (10:18)
[2024-11-28] MEDS: lidocaine-epi 1% 20 mL INJ 10 ML INJECTION (11:14)
--- NOTE | 2024-11-28 11:29 | XR_ITS ---
WS: [id number] Lumbar spine, C-arm fluoroscopy views, 11/28/2024 Clinical Data: OR PICS Comparison: Lumbar spine, 07/24/2024 Findings: Dr. Mortensen performed a lumbar decompression. XR/XR lumbar spine 2-3V* [id number] Impression: Lumbar decompression.
--- NOTE | 2024-11-28 11:44 | PM.OP ---
Operative Report Date of procedure: November 28, 2024 Pre-op diagnosis: Lumbar radiculopathy L5-S1 on the left Post-op diagnosis: same Procedure done: L5/S1 laminectomy with partial facetectomy Surgeon: Taqueria Mortensen DO Estimated blood loss (mL): 5 Procedure: L5/S1 laminectomy with partial facetectomy Patient is brought to the operative suite. After undergoing anesthesia they are placed in the prone position. All areas of impingement are well padded. Patient is then prepped and draped in the normal sterile fashion. A skin incision is made over the L5/S1 level. This is confirmed under c-arm guidance. A series of dilators are passed and the tubular retractor is docked on the L5 lamina. A bovie is used to clear the soft tissue off the lamina and the L L5/S1 facet joint. A high speed ainsley is then used to perform the laminectomy and take down the medial aspect of the L 5/S1 facet joint. A kerrison rongeure was then used to take down the remaining lamina and smooth the edge of the laminectomy up to the point where the ligamentum flavum attaches. Attention was then brought to the medial aspect of the facet joint. The remaining medial aspect of the superior and inferior aspect of the facet joint were taken down with the kerrison from the pedicle of L5 to S1. The facet joint had significant hypertrophy. Attention was then brought to the Ligamentum Flavum. The ligament was taken down from the lamina of L5 to S1 and out medially to the remaining facet joint. The ligament was thick. The dura was then exposed. The dura was in good repair. The L5 nerve was then traced with a curette out the L 5/S1 foramen and found to be adequately decompressed. The S1 nerve was traced with a curette around the S1 pedicle. The lateral recess was opened with a kerrison helping to further decompress the S1 nerve. Wound is then irrigated copiously with saline and surgiflo is used to stop any bleeding. The tubular retractor is removed and the wound is closed with vicryl and monocryl suture. Glue is then used to protect the wound. A sterile dressing is then placed. Patient was then placed in the supine position and transferred to the PACU in stable condition.
[2024-11-28] MEDS: fentaNYL 50 mcg/mL INJ 2mL IVP (12:13)
[2024-11-28] MEDS: metoprolol tartrate 1 mg/1 mL SDV 5 mL 2 MG IVP (12:33)
--- NOTE | 2024-11-28 12:42 | PC.NURSE ---
1226 - Dr. Carrillo notified of elevated BP - orders received.
--- NOTE | 2024-11-28 13:05 | PC.NURSE ---
1300- Dr. Carrillo notified patient's BP elevated after IV metoprolol given. Orders received to discharge patient and instruct him to take home blood pressure medication as soon as he gets home. Patient instructed to take BP medications as soon has he gets home - patient verbalized understanding.
[2024-11-28] MEDS: HYDROcodone-acetaminophen 10-325 mg Tablet 1 TAB PO (13:12)
== END 2024-11-28 13:45 | disposition home or self-care (01) ==
PROVIDERS: Visit Provider Orthopaedic Surgery
PROC: (CPT 63005; principal; 2024-11-28 10:20)
DX: M54.16 Radiculopathy, lumbar region (principal); F17.220 Nicotine dependence, chewing tobacco, uncomplicated; I10 Essential (primary) hypertension; G47.33 Obstructive sleep apnea (adult) (pediatric); Z99.89 Dependence on other enabling machines and devices
CPT/HCPCS: 63047; 72100; 76000; J0131; J0690; J1100; J1885; J2250; J2405; J2704; J3010; J3490; J7030; J9999